=== PATIENT | female | born 1975 ===

== ENCOUNTER 2024-06-02 22:32 | Emergency (ER) | payer OTHER, SELFPAY ==
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
[2024-06-02 22:33] VITALS: BP 119/92; PULSE 99; RESP 16; TEMP 37; O2SAT 99
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
[2024-06-02 22:53] LABS: Bilirubin Negative (Negative); Blood Trace-intact (Negative); Clarity Clear (Clear); Glucose Negative (Negative); Ketones Negative (Negative); Leukocyte Esterase Negative (Negative); Nitrite Negative (Negative); Specific Gravity 1.015 (1.005-1.025); Urobilinogen 0.2 mg/dL (Up to 0.2)
[2024-06-02 22:56] LABS: Abs Immature Grans 0.02 10^3/uL (0.0-0.06); Absolute Basophil Count 0.04 10^3/uL (0.0-0.2); Absolute Eosinophil Count 0.11 10^3/uL (0.0-0.7); Absolute Lymphocyte Count 1.71 10^3/uL (1.2-3.4); Absolute Monocyte Count 0.42 10^3/uL (0.1-0.8); Absolute Neutrophil Count 7.44 10^3/uL (1.2-6.7); Basophils % 0.4 %; Eosinophils % 1.1 %; HCT 39.8 % (36.0-46.0); HGB 13.4 g/dL (11.2-15.7); Immature Grans % 0.2 %; Lymphocytes % 17.6 %; MCH 30.1 pg (27.0-33.0); MCHC 33.7 % (32.0-36.0); MCV 89 fL (80-95); MPV 10.1 fL (8.0-11.0); Monocytes % 4.3 %; Neutrophils % 76.4 %; Platelet Count 188 10^3/uL (130-400); RBC 4.45 10^6/uL (3.93-5.22); RDW 13.1 % (11.7-14.6); RDW-SD 42.6 fL; WBC 9.74 10^3/uL (4.4-10.8)
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
[2024-06-02 23:00] LABS: Bacteria Few HPF (Negative); C & S Indicated? No; Casts Negative LPF (Negative); Crystals Negative HPF (Negative); Epithelial Cells Rare HPF (Negative); Mucus Negative (Negative); RBC 0-2 HPF (0-2); WBC 0-2 HPF (0-5)
[2024-06-02 23:06] VITALS: O2SAT 99
[2024-06-02] MEDS: Normal Saline - Diluent 50 ML VIAL IJ (23:08)
[2024-06-02] MEDS: Omnipaque 350 MG/ML 100 ML BTL IJ (23:09)
[2024-06-02 23:11] LABS: ALT 25 U/L (14-59); AST 19 U/L (15-37); Albumin 4.1 g/dL (3.4-5.0); Alkaline Phosphatase 64 U/L (46-116); Amylase 67 U/L (25-115); BUN 8 mg/dL (7-18); Bilirubin, Total 0.59 mg/dL (0.2-1.0); CREATININE 0.7 mg/dL (0.55-1.02); Calcium 8.7 mg/dL (8.5-10.1); Chloride 106 mmol/L (98-107); Estimated GFR 107.95 (mL/min/1.73m2); Glucose 90 mg/dL (74-106); Lipase 36 U/L (16-77); Potassium 3.2 mmol/L (3.5-5.1); Sodium 141 mmol/L (136-145); Total Protein 7.8 g/dL (6.4-8.2)
[2024-06-02] MEDS: Acetaminophen 500 MG TAB 1000 MG PO (23:22)
[2024-06-02] MEDS: Ketorolac 15 MG/ML VIAL (23:22)
[2024-06-02 23:23] VITALS: O2SAT 98
[2024-06-02] MEDS: Potassium Chloride Liquid 20 MEQ PKT 40 MEQ PO (23:26)
[2024-06-02 23:30] VITALS: O2SAT 100
[2024-06-02 23:40] VITALS: O2SAT 100
[2024-06-02 23:50] VITALS: O2SAT 99
[2024-06-03] VITALS: O2SAT 99
[2024-06-03 00:10] VITALS: O2SAT 98
--- OUTSIDE RECORDS SUMMARY | 2024-06-03 00:36 | XMS_ITS | Encounter Summary ---
Author Organization [facility] Address [address] [place] [address] Care Team Providers Care Patient Service Coordinator Name Role Phone Reji Dooley MD Unavailable [phone] Reason for Visit * Reason Comments Pharyngitis SORE THROAT-ID SEEN Encounter Details Date Type Department Care Team ([facility] Contact Info) Description 05/08/2016 6:25 PM EDT - 05/08/2016 8:09 PM EDT Emergency [facility] - [facility] [address] [place] [address] Susu Mora-Inactive- Viral pharyngitis Discharge Disposition: Home Social History Tobacco Use Types Packs/Day Years Used Date Smoking Tobacco: Never Alcohol Use Standard Drinks/Week Comments No 0 (1 standard drink = 0.6 oz pur e alcohol) Sex and Gender Information Value Date Recorded Sex Assigned at Not on file Gender Identity Not on file Sexual Orientation Not on file documented as of this encounter Last Filed Vital Signs Vital Sign Reading Time Taken Comments Blood Pressure 108/70 05/08/2016 6:38 PM EDT Pulse 86 05/08/2016 6:38 PM EDT Temperature 36.8 ??C (98.3 ??F) 05/08/2016 6:38 PM ED T Respiratory Rate 16 05/08/2016 6:38 PM EDT Oxygen Saturation 98% 05/08/2016 6:38 PM EDT Inhaled Oxygen Concentration - - Weight - - Height - - Body Mass Index - - documented in this encounter Discharge Instructions * Discharge Instructions* Susu Mora - 05/08/2016 7:47 PM EDT You were seen in the ED for a sore throat. Your rapid strep test was negative. A second test has been sent (throat culture) to confirm - if the test is abnormal you will receive a phone call. [place] 2-3 days to obtain. You may take the following medication for your symptoms: -acetaminophen (Tylenol) 500-650mg every 6 hours and -ibuprofen (Motrin, Advil) 400mg every 6 hours See attached for general care information. See your PCP if not improved after 4- 7 days. * Attachments The following attachments cannot be sent through Care Everywhere. * VIRAL INFECTIONS, CMHY-OX-ACOF (DIVEHI) documented in this encounter ED Notes * Susu Mora - 05/08/2016 6:44 PM EDT I have reviewed the ED nursing notes and prior records. I have reviewed the patient's past medical history/problem list, allergies, social history and medication list. I saw this patient primarily. CC: sore throat HPI: This 40 year old female patient with sore throat x 1 days. Fever - none. No cough, nasal congestion, ear pain, n/v/d, abd pain, cp, sob, rash. 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 Past Medical History/Problem List: History reviewed. No pertinent past medical history. There is no problem list on file for this patient. Past Surgical History: History reviewed. No pertinent past surgical history. Medications: No current facility-administered medications on file prior to encounter. No current outpatient prescriptions on file prior to encounter. Social History: Smoking status: Never Smoker Smokeless tobacco: Not on file Alcohol use No Allergies: Review of Patient's Allergies indicates: No Known Allergies Physical Exam: BP 108/70 Pulse 86 Temp 98.3 ??F Resp 16 LMP 04/23/2016 SpO2 98% GENERAL: Well-appearing, no distress. SKIN: Warm & dry, no rash. HEAD: Atraumatic. Normocephalic. ENT: Mucous membranes moist. Oropharynx B tonsillar erythema without enlargement or exudates, symmetric tonsils. TMs nl. Nasal mucosa nl. Uvula midline. EYES: Anicteric, nl conjunctiva. NECK: FROM, no cervical adenopathy. LUNGS: Clear to auscultation bilaterally, regular rate and effort. CV: RRR. No murmurs, rubs, or gallops. MUSCULOSKELETAL: No clubbing or cyanosis. NEUROLOGIC: Alert. Normal speech. Normal gait. PSYCHIATRIC: Normal affect ED Course and Medical Decision-making: The patient is 40 year old female with sore throat. Exam with OP erythema without tonsillar enlargement/exudate. Uvula midline. No asymmetry. O2 saturation interpretation: nl. Rapid strep negative, culture sent. Dexamethasone and ibuprofen in ED. D/c home with tylenol/ibuprofen. Doctor finder line for new PCP. No indication for emergent labs/imaging at this time. F/u in 7 days if not improving. The diagnosis, treatment, and follow-up were all discussed with the patient. All questions were answered. Reasons to return to the ED were reviewed in detail. The patient agrees with this plan and disposition. Disposition: Discharged to home Condition on Disposition: Improved and Stable Diagnosis/Diagnoses: Viral pharyngitis Susu Mora MD documented in this encounter Miscellaneous Notes * Narrator Note - Indiana Farris - 05/08/2016 7:50 PM EDT Patient Disposition Patient education for diagnosis, medications, activity, diet and follow-up. Patient left ED 7:50 PM. Patient rep received written instructions. Regrind Mill Operator to provide instructions: No Patient belongings with patient: YES Have all existing LDAs been addressed? N/A Have all IV infusions been stopped? N/A Discharged to: Discharged to home - voices understanding of all instructions given. * ED Triage Note - Jeremiah Jo - 05/08/2016 6:39 PM EDT I have a sore throat, started yesterday. Pt presents ambulatory,NAD.Pt has enlarged tonsils with scant amount of exudate.Her lung sounds areclear.Pt has no other somatic complaints. documented in this encounter Plan of Treatment Not on file documented as of this encounter Procedures Procedure Name Priority Date/Time Associated Diagnosis Comments THROAT CULTURE BETA STREP Routine 05/08/2016 6:46 PM EDT RAPID STREP (POINT OF CARE) Routine 05/08/2016 6:46 PM EDT documented in this encounter Results * Throat Culture Beta Strep (05/08/2016 6:46 PM EDT) THROAT CUL, B STREP SCREEN NO GROUP A STREP [facility] SPECIMEN FROM THROAT / Unknown 05/08/2016 6:46 PM EDT 05/08/2016 6:48 PM EDT Narrative [facility] - 05/10/2016 1:07 PM EDT Source Details->throat Marc Mora [facility] [address] [place] [address] * Rapid Strep (Point of Care) (05/08/2016 6:46 PM EDT) STREP SCREEN Negative ONBOARD CONTROL PRESENT? Yes SPECIMEN FROM THROAT / Unknown 05/08/2016 6:46 PM EDT Marc Mora POINT OF CARE TEST ORDERABLES documented in this encounter Visit Diagnoses Diagnosis Viral pharyngitis Acute pharyngitis documented in this encounter Administered Medications Inactive Administered Medications - up to 3 most recent administrations Medication Order MAR Action Action Date Dose Rate Site dexamethasone (DECADRON) tablet 8 mg 8 mg, Oral, ONCE, On Wed05/08/16 at 1900, For 1 dose Given 05/08/2016 7:00 PM EDT 8 mg ibuprofen (ADVIL,MOTRIN) tablet 400 mg 400 mg, Oral, ONCE, On Wed05/08/16 at 1900, For 1 dose Given 05/08/2016 7:00 PM EDT 400 mg documented in this encounter Active and Recently Administered Medications Times are shown in EDT. Scheduled Medication Order 05/06/2016 05/07/2016 05/08/2016 dexamethasone (DECADRON) tablet 8 mg (COMPLETED) 8 mg, Oral, ONCE, On Wed05/08/16 at 1900, For 1 dose 1900 (Given - Provid er: Jeremiah Jo) ibuprofen (ADVIL,MOTRIN) tablet 400 mg (COMPLETED) 400 mg, Oral, ONCE, On Wed05/08/16 at 1900, For 1 dose 1900 (Given - Provid er: Jeremiah Jo) documented in this encounter Care Teams Patient Service Coordinator Relationship Specialty Start Date End Date Reji Dooley MD [address] [facility] [address] [place] [address] PCP - Insurance PCP 10/09/15 08/14/18 documented as of this encounter
--- OUTSIDE RECORDS SUMMARY | 2024-06-03 00:36 | XMS_ITS | Encounter Summary ---
Author Organization [facility] iance Address [address] [place] [address] Care Team Providers Care Vp & General Counsel Name Role Phone Reji Dooley MD Unavailable [phone] Reason for Visit * Reason Comments Eye Problem EYE INFECTION Encounter Details Date Type Department Care Team ([facility] st Contact Info) Description 12/05/2015 2:29 PM EST - 12/05/2015 4:08 PM EST Emergency [facility] [address] [place] [address] Venkat Pozo MD Conjunctivitis of both eyes, unspecified conjunctivitis (Primary Dx) Discharge Disposition: Home Social History Tobacco Use [...] Sign Reading Time Taken Comments Blood Pressure 104/61 12/05/2015 2:39 PM EST Pulse 59 12/05/2015 2:39 PM EST Temperature 37.1 ??C (98.7 ??F) 12/05/2015 2:39 PM ES T Respiratory Rate 16 12/05/2015 2:39 PM EST Oxygen Saturation 97% 12/05/2015 2:39 PM EST Inhaled Oxygen Concentration - - Weight - - Height - - Body Mass Index - - documented in this encounter Discharge Instructions * Discharge Instructions* Olinda Singh PA - 12/05/2015 3:58 PM EST DIAGNOSIS & TREATMENT: You were seen in a [facility] Emergency Department for conjunctivitis. You were treated with erythromycin ointment. FURTHER CARE: 1. Use erythromycin ointment as directed. 2. Wash your hands repeatedly and avoid touching your eyes otherwise you can spread it. 3. Throw out any contaminated eye makeup otherwise you risk re-infecting yourself. NEW MEDICATIONS: Erythromycin ointment: Apply 1/2 inch to lower lid 4 times a day for 5-7 days. This is an antibiotic which is only effective against bacterial infections, not viral. Please take this medication as directed and finish out the entire course of the medication. Failure to do this can cause resistance and not only allow your infection to return but also make it harder to treat the next time. WHEN SHOULD YOU BE SEEN NEXT? Please call your human resources representative and be seen with in the next 5 days for re- evaluation if your symptoms are not improving. WHEN SHOULD YOU RETURN TO THE ED? Please return to the emergency room if you develop fever, increased pain, worsening redness, worsening or loss of vision, your symptoms worsen, you get new symptoms or you are unable to schedule follow up care. documented in this encounter Medications at Time of Discharge Medication Sig Dispensed Refills Start Date End Date erythromycin (ROMYCIN) ophthalmic ointment Place 0.5 Inches into both eyes every 6 (six) hours. 3.5 g 0 12/05/2015 12/10/2015 documented as of this encounter ED Notes * Olinda Singh PA - 12/05/2015 4:00 PM EST ED nursing record was reviewed. Prior records as available electronically through the [employer] record were reviewed. Patient was seen along with Dr. Pozo and management was discussed with them. HPI: This 39 year old female patient presents to the Emergency Department with chief complaint of bilateral eye itchiness, redness, discharge. She said that yesterday her left eye felt itchy however she did not think anything of it. She woke up and both eyes were crusted shut. They have been itchy and uncomfortable all day. Does not wear contact lenses. She denies any eye pain. Denies photophobia. Denies any foreign body sensation. Denies any trauma to the eye. Denies any changes in vision or diplopia. Denies any fevers, chills, nasal congestion, earache, sore throat, cough, chest pain, shortness of breath, or abdominal pain. ROS: Pertinent positives were reviewed as per the HPI above. All other systems were reviewed and are negative. Past Medical History/Problem list: History reviewed. No pertinent past medical history. There is no problem list on file for this patient. Past Surgical History: History reviewed. No pertinent past surgical history. Medications: No current facility-administered medications on file prior to encounter. No current outpatient prescriptions on file prior to encounter. Social History: Social History Marital Status: Spouse Name: N/A Years of Education: N/A Number of Children: N/A Occupational History None on file Social History Main Topics Smoking status: Never Smoker Smokeless tobacco: Not on file Alcohol Use: No Drug Use: No Sexual Activity: Not on file Not on file Other Topics Concern None on file Social History Narrative Allergies: Review of Patient's Allergies indicates: No Known Allergies Physical Exam: BP 104/61 mmHg Pulse 59 Temp(Src) 98.7 ??F Resp 16 SpO2 97% LMP 11/28/2015 (Exact Date) GENERAL: Well appearing, No acute distress, non-toxic. SKIN: Warm & Dry, no erythema or rash. HEAD: NCAT. Sclerae are anicteric and aninjected, oropharynx is clear with moist mucous membranes. EYES: Both eyes conjunctiva are injected and erythematous. She has small amount of discharge in theleft medial canthus. Pupils are equal and reactive to light. Extraocular movement intact and pain-free. Fluorescein exam was performed and revealed no evidence of corneal abrasion, ulcer or herpetic lesions. No evidence of foreign body. NECK: Supple. No ODALYS. No stridor. LUNGS: Clear to auscultation bilaterally. No wheezes, rales, rhonchi. HEART: RRR. No murmurs, rubs, or gallops. NEUROLOGIC: Alert and oriented x4; moves all extremities well; speaking in clear fluent sentences. PSYCHIATRIC: Appropriate for age, time of day, and situation ED Course and Medical Decision-making: This 39 year old female patient was seen and evaluated for eye complaint. On exam she is well-appearing, nontoxic in no acute distress. She is afebrile with stable vital signs. Both eyes conjunctiva are injected and erythematous. She has small amount of discharge in the left medial canthus. Pupils are equal and reactive to light. Extraocular movement intact and pain-free. Fluorescein exam was performed and revealed no evidence of corneal abrasion, ulcer or herpetic lesions. No evidence of foreign body. With the patient's description of her symptoms as well as findings on physical exam, most likely diagnosis is acute bilateral conjunctivitis. She was given treatment with erythromycin here in the emergency department as well as given a prescription to continue for the next 5-7 days. The contact information for the [facility] to follow-up if symptoms did not resolve. Patient was discharged home. Reasons to return to the emergency department were discussed in detail. Condition: Stable Disposition: Home Diagnosis/Diagnoses: Conjunctivitis of both eyes, unspecified conjunctivitis (primary encounter diagnosis) Olinda Singh PA-C This Emergency Department patient encounter note was created using voice- recognition software and in real time during the ED visit. Please excuse any typographical errors that have not been edited out. Associated attestation - Venkat Pozo MD - 12/05/2015 10:02 PM EST This patient was evaluated in the ED for bilateral eye itchiness/crusting, although initial historyand physical exam information was obtained by the HERNAN Singh, who also made a record of this visit. I independently examined and evaluated this patient and made all diagnostic, treatment and disposition decisions. Physical examination Vital signs:BP 104/61 mmHg Pulse 59 Temp(Src) 98.7 ??F Resp 16 SpO2 97% LMP 11/28/2015 (Exact Date) Constitutional: No acute distress, non-toxic appearance Eyes: PERRL, injected conjunctiva bilaterally, no evidence of abrasion on fluoroscein staining HENT: Atraumatic, external ears normal, nose normal, oropharynx moist. Musculoskeletal: No edema, no tenderness, no deformities. Integument: Well hydrated, no rash Neurologic: Alert & oriented. Cranial nerves, motor, sensory grossly intact. Psychiatric: Speech and behavior appropriate. Labs Reviewed SCREENING TEST VISUAL ACUITY QUANTITATIVE BILAT Emergency Department course and medical decision-making: Patient is a 39-year-old female presenting to the emergency department with concern for bilateral eye itchiness/discharge. Evaluation is suggestive of conjunctivitis, likely bacterial vs. viral in etiology. Plan to treat patient with course of erythromycin ophthalmic ointment, and have patient follow up with PCP. Patient stable for discharge home. Impression: Conjunctivitis of both eyes, unspecified conjunctivitis (primary encounter diagnosis) Electronically signed by: Venkat Pozo MD, 12/05/2015 10:02 PM This Emergency Department patient encounter note was created using voice- recognition software and in real time during the ED visit. Please excuse any typographical errors that have not been edited out. * Venkat Pozo MD - 12/05/2015 3:56 PM EST Visual acuity (stereopsis) 20/30 (-1) documented in this encounter Miscellaneous Notes * Narrator Note - Arlene Skinner - 12/05/2015 4:05 PM EST Discharged to home after review of instructions and plans to follow up or return to the ED as needed. * ED Triage Note - Arlene Skinner - 12/05/2015 2:40 PM EST Presents reporting itchy, burning sensation with crustiness this am in both eyes. Its uncomfortable, she denies any dust or other types of work where it could get in her eyes. She does have small children at home. documented in this encounter Plan of Treatment Not on file documented as of this encounter Procedures Procedure Name Priority Date/Time Associated Diagnosis Comments SCREENING TEST VISUAL ACUITY QUANTITATIVE BILAT Routine 12/05/2015 3:31 PM EST documented in this encounter Results * Visual Acuity Screen (Point of Care) (12/05/2015 3:31 PM EST) VISUAL ACUITY LEFT EYE 20/30 VISUAL ACUITY RIGHT EYE 20/30 Stereopsis Visual Test 12/05/2015 3:31 PM EST Olinda Gudino PA-Geoffrey POINT OF CARE TEST O RDERABLES documented in this encounter Visit Diagnoses Diagnosis Conjunctivitis of both eyes, unspecified conjunctivitis- Primary documented in this encounter Administered Medications Inactive Administered Medications - up to 3 most recent administrations Medication Order MAR Action Action Date Dose Rate Site erythromycin (ROMYCIN) ophthalmic ointment 0.5 Inch 0.5 Inch, Both Eyes, ONCE, Starting on Monica 12/05/15 at 1556, For 1 dose Given 12/05/2015 4:05 PM EST 0.5 Inches fluorescein ophthalmic strip 1 strip 1 strip, Both Eyes, ONCE, On Monica 12/05/15 at 1529, For 1 dose, To bedside for provider. Given 12/05/2015 3:31 PM EST 1 strip tetracaine (PONTOCAINE) 0.5 % ophthalmic solution 2 drop 2 drop, Both Eyes, ONCE, On Monica 12/05/15 at 1529, For 1 dose, To bedside for provider Given 12/05/2015 3:31 PM EST 2 drops documented in this encounter Active and Recently Administered Medications Times are shown in EST. Scheduled Medication Order 12/03/2015 12/04/2015 12/05/2015 erythromycin (ROMYCIN) ophthalmic ointment 0.5 Inch (COMPLETED) 0.5 Inch, Both Eyes, ONCE, Starting on Monica 12/05/15 at 1556, For 1 dose 1605 (Given - Provid er: Arlene Skinner) fluorescein ophthalmic strip 1 strip (COMPLETED) 1 strip, Both Eyes, ONCE, On Monica 16 at 1529, For 1 dose, To bedside for provider. 1531 (Given - Provid er: Arlene Skinner - Comment: given to provider for use with this patient) tetracaine (PONTOCAINE) 0.5 % ophthalmic solution 2 drop (COMPLETED) 2 drop, Both Eyes, ONCE, On Monica 12/05/15 at 1529, For 1 dose, To bedside for provider 1531 (Given - Provid er: Arlene Skinner - Comment: given to provider for use with this patient) documented in this encounter Care Teams Vp & General Counsel Relationship Specialty Start Date End Date Reji Dooley MD [address] [facility] [address] [place] [id number] PCP - Insurance PCP 10/09/15 08/14/18 documented as of this encounter
--- OUTSIDE RECORDS SUMMARY | 2024-06-03 00:36 | XMS_ITS | Encounter Summary ---
Author Organization [facility] Address [address] [place] [address] Care Team Providers Care Insurance Claim Auditor Name Role Phone Reji Dooley MD Unavailable Reji Dooley MD Primary Care Provider [phone] Add, Provider Not In System Unavailable Unav ailable Reason for Visit * Reason Comments Ankle Pain ANKLE PAIN Encounter Details Date Type Department Care Team (Late st Contact Info) Description 08/14/2018 11:56 PM EDT - 08/15/2018 3:07 AM EDT Emergency [facility] [id number] [place] [address] Bee Robledo MD [facility] [place] [address] Sprain of deltoid ligament of left ankle (Primary Dx); Sprain of right wrist; Pain in left ankle; Overexertion from prolonged static or awkward postures, initial encounter; Activity involving running; Other specified places as the place of occurrence of the external cause Discharge Disposition: Home Social History Tobacco Use [...] Sign Reading Time Taken Comments Blood Pressure 111/71 08/15/2018 12:39 AM EDT Pulse 87 08/15/2018 12:39 AM EDT Temperature 37 ??C (98.6 ??F) 08/15/2018 12:39 AM EDT Respiratory Rate 16 08/15/2018 12:39 AM EDT Oxygen Saturation 98% 08/15/2018 12:39 AM EDT Inhaled Oxygen Concentration - - Weight - - Height - - Body Mass Index - - documented in this encounter Discharge Instructions * Discharge Instructions* Bee Robledo MD - 08/15/2018 2:17 AM EDT DIAGNOSIS & TREATMENT: [facility] for left ankle and right wrist pain. TEST RESULTS: X-ray of your right wrist and left ankle show no fractures on preliminary read. This will be reviewed by the radiologist in the morning. If there is a significant discrepancy between the preliminary report and the radiologist's final interpretation, you will be notified by telephone. FURTHER CARE: Rest, Ice and elevate the limbs. Use the crutches as needed until you are able to bear weight on your foot without pain. Gradually return to normal activity. Keep the Aircast on your ankle for 2 weeks. NEW MEDICATIONS: Please use over the counter Tylenol (acetaminophen) and Motrin (ibuprofen) for pain control. Take Tylenol (acetaminophen) 650 MG ( 2 regular strength tablets) every 6 hours. Take Motrin/Advil (ibuprofen) 600 MG (3 tablets) every 6 hours, and take with food. You can them together every 6 hours, or alternate between Tylenol and Motrin taking one every threehours. Wait 6 hours between the SAME kind of medication. ??? Please make sure you monitor your Tylenol use. Tylenol is the same as acetaminophen. For adults, any amount over 4 grams (4,000 mg) in any 24 hour period can cause liver damage, possibly irreversible. ??? Please make sure to check all the medications you are taking including over- the counter (OTC) medications. Many multi-symptom medications have acetaminophen in them so please check carefully. ??? For an adult, do not take more than 3200 mg of Ibuprofen in any 24 hour period. Please contact your doctor or pharmacist for any additional questions. WHEN SHOULD YOU BE SEEN NEXT? Please call your doctor and be seen with in the next 10 days for re-evaluation if your symptoms arenot improving. If you do not have a primary care doctor or would like to [facility], please call [phone] to set one up an appointment. WHEN SHOULD YOU RETURN TO THE ED? Please return to the emergency room if you develop numbness, tingling, your limb becomes cool to the touch or turns blue, your symptoms worsen, you get new symptoms or you are unable to schedule follow up care. documented in this encounter ED Notes * Bee Robledo MD - 08/15/2018 8:05 AM EDT [facility] Emergency Medicine Attending Note History of Present Illness: Minal Cabral is a 42 year old female patient with no significant past medical history who presents with left ankle pain. Patient states she was running in the grass this afternoon, when she she has noted increased swelling, pain, and pain with ambulation. She has not taken any medications. No headache, neck pain, back pain, chest pain, shortness of breath, abdominal pain. She does have some pain in her right wrist from the fall. The patient was seen primarily by me. ED nursing record was reviewed. Prior records as available electronically through the [employer] record were reviewed. Patient's mode of arrival was by Relative Arrival time: 08/14/2018 11:56 PM Chief complaint: Ankle Pain (ANKLE PAIN) Review of Systems: As per HPI. Past Medical Hx: History reviewed. No pertinent past medical history. There is no problem list on file for this patient. Meds: No current facility-administered medications for this encounter. No current outpatient medications on file. Past Surgical Hx: History reviewed. No pertinent surgical history. Allergies: Review of Patient's Allergies indicates: No Known Allergies Social Hx: Social History Tobacco Use Smoking status: Never Smoker Alcohol use: No Immunizations: There is no immunization history on file for this patient. Physical Examination: ED Triage Vitals [08/15/18 0039] ED Triage Vitals Brief Group Temp 98.6 ??F Pulse 87 Resp 16 BP 111/71 SpO2 98 % Pain Score 8 GENERAL: no acute distress, non-toxic SKIN: Warm & Dry, no rash HEAD: NCAT. Sclerae are anicteric and aninjected NECK: Supple. No stridor. No midline C-spine tenderness LUNGS: Clear to auscultation bilaterally. No wheezes, rales, rhonchi. No chest wall tenderness HEART: RRR. No murmurs, rubs, or gallops. ABDOMEN: Soft, NTND. No involuntary guarding or rebound. EXTREMITIES: No obvious deformities. Warm and well perfused. No edema. Right wrist: Tenderness overthe distal lateral radius, no other focal bony tenderness, no snuffbox tenderness. Left ankle: Tenderness at the lateral malleolus NEUROLOGIC: Alert and oriented x3; moves all extremities well; speaking in clear fluent sentences. Motor and sensation intact bilateral lower extremities PSYCHIATRIC: Appropriate for age, time of day, and situation Medications Given in the ED: Medications - No data to display Radiology and ECG: XR Wrist Right minimum 3 Vw Final Result XR Ankle Left minimum 3 Vw Final Result Electrocardiogram: N/A Lab Results: Labs Reviewed POC URINALYSIS URINE TEST (POINT OF CARE) Results for orders placed or performed during the hospital encounter of 08/14/18 (from the past 24 hour(s)) POC Urinalysis Collection Time: 08/15/18 1:15 AM Result Value COLOR YELLOW CLARITY CLEAR GLUCOSE,URINE NEGATIVE BILIRUBIN, URINE NEGATIVE KETONE, URINE NEGATIVE SPECIFIC GRAVITY, URINE <=1.005 UROBILINOGEN URINE 0.2 OCCULT BLOOD, URINE NEGATIVE PH URINE 6.0 PROTEIN, URINE NEGATIVE NITRITE, URINE NEGATIVE LEUKOCYTE ESTERASE NEGATIVE Urine (Point of Care) Collection Time: 08/15/18 1:20 AM Result Value HCG QUALITATIVE URINE Negative ONBOARD CONTROL PRESENT? Yes Vital Signs: Patient Vitals for the past 720 hrs: Temp Pulse Resp BP SpO2 08/15/18 0039 98.6 ??F 87 16 111/71 98 % ED Course and Medical Decision-making: This 42 year old female patient presents with injuries after a fall. Patient with right wrist and left ankle pain and tenderness. X-rays were obtained which show no fractures on my preliminary read. No snuffbox tenderness to suggest scaphoid fracture of the right wrist. Patient counseled on symptomatic management. She was provided with an Aircast, and will be discharged to follow- up with her primary care provider. Reasons to return to the ED were reviewed in detail. All questions were answered. The patient agrees with this plan and disposition. Condition on Discharge: Improved Diagnosis/Diagnoses: Sprain of deltoid ligament of left ankle, initial encounter Right wrist sprain, initial encounter Medications administered at this visit: No orders of the defined types were placed in this encounter. New prescriptions from this visit: There are no discharge medications for this patient. Bee Robledo MD, MPH 08/16/2018 Dept[facility] This Emergency Department patient encounter note was created using voice- recognition software and in real time during the ED visit. Please excuse any typographical errors that have not yet been reviewed and corrected. documented in this encounter Miscellaneous Notes * Narrator Note - Gordo Rousseau RN - 08/15/2018 2:41 AM EDT Patient Disposition Patient education for diagnosis, medications, activity, diet and follow-up. Patient left ED 2:41 AM. Patient rep received written instructions. Suction Worker to provide instructions: No Patient belongings with patient: YES Have all existing LDAs been addressed? N/A Have all IV infusions been stopped? N/A Discharged to: Discharged to home Home with crutch teaching. Pt verbalizes understanding. * ED Triage Note - Gordo Rousseau RN - 08/15/2018 12:39 AM EDT Pt presents to ED from home. Pt s/p L ankle injury when running in grass this afternoon. Pt reportsincreased swelling, pain, and inability to bear weight to LLE. No OTC medication BERRY GROWER. Ice/elevated in triage. documented in this encounter Plan of Treatment Not on file documented as of this encounter Procedures Procedure Name Priority Date/Time Associated Diagnosis Comments XR WRIST RIGHT MINIMUM 3 VIEWS Stat 08/15/2018 1:50 AM EDT XR ANKLE LEFT MINIMUM 3 VIEWS Stat 08/15/2018 1:44 AM EDT URINE TEST (POINT OF CARE) Routine 08/15/2018 1:20 AM EDT POC URINALYSIS Routine 08/15/2018 1:15 AM EDT documented in this encounter Results * XR Wrist Right minimum 3 Vw (08/15/2018 1:50 AM EDT) RAD REPORT-[id number] [facility], ??[place] [address] ?? Department of Diagnostic Radiology PATIENT: MINAL CABRAL ?? : 1975 ??AGE: 42 ?? SEX: F ?LOCATION: [facility] ?? UNIT#: [id number] ??STATUS: DEP ER ?? ORD PHY: BEE ROBLEDO MD ?? Exam Date: 08/15/18 ?Exam Status: Signed ?? Exam: ??WRIST, RIGHT MIN 3 VIEWS ?? Reason for Exam: ??pain sp FOOSH ?? Exam: Right wrist, 3 views ?? Indication: Reason: ??pain sp fell on outstretched hand ?? Comparison: none ?? Findings: ?? Bones: There is no fracture or dislocation. The bony alignment is ?? normal. ?? Joints /Joint Surfaces: The joint spaces are maintained. ?? Soft Tissues: Unremarkable. ? Impression: No acute bony changes. ?? Dictated By: ?LILIA RAHMAN MD ?? Reviewed and Electronically Signed By: ?? LILIA RAHMAN MD ?? Technologist: [email or web address] Signed Date/Time: 08/15/18 0734 Transcribed Date/Time: 08/15/18 0733 by [email or web address] Printed Date/Time: ?? Report #: [id number] Addendum Transcribed Date/Time: / Addendum Signed Date/Time ?? CC: ? DIAGNOSTIC RADIOLOGY Anatomical Region Laterality Modality Upper Extremities Other 08/15/2018 1:50 AM EDT Bee Robledo MD RAD XR ORDERABLES * XR Ankle Left minimum 3 Vw (08/15/2018 1:44 AM EDT) RAD RE[facility] [address], ??[place] [address] ?? Department of Diagnostic Radiology PATIENT: ENGIDAWORK,MESSAY ?? : 1975 ??AGE: 42 ?? SEX: F ?LOCATION: [facility] ?? UNIT#: [id number] ??STATUS: DEP ER ?? ORD PHY: BEE ROBLEDO MD ?? Exam Date: 08/15/18 ?Exam Status: Signed ?? Exam: ??ANKLE, LEFT MIN 3 VIEWS ?? Reason for Exam: ??swelling ?? Exam: Left Ankle, 3 views ?? Indication: Reason: ??swelling ?? Comparison: None ?? Findings: ?? Bones: There is no fracture or dislocation. The bony alignment is ?? normal. ?? Joints /Joint Surfaces: The ankle mortise is preserved. There is no ?? visible joint effusion. ?? Soft Tissues: The soft tissues appear normal. ? Impression: No acute bony changes. ?? Dictated By: ?LILIA RAHMAN MD ?? Reviewed and Electronically Signed By: ?? LILIA RAHMAN MD ?? Technologist: [email or web address] Signed Date/Time: 08/15/18731 Transcribed Date/Time: 08/15/18731 by [email or web address] Printed Date/Time: ?? Report #: [id number] Addendum Transcribed Date/Time: / Addendum Signed Date/Time ?? CC: ? DIAGNOSTIC RADIOLOGY Anatomical Region Laterality Modality Lower Extremities Other 08/15/2018 1:44 AM EDT Bee Robledo MD RAD XR ORDERABLES * Urine (Point of Care) (08/15/2018 1:20 AM EDT) HCG QUALITATIVE URINE Negative Comment: This urine HCG qualitative test detects intact hCG only and is indicated for the early detection of . As a progresses, the hCG molecule can fragment into different forms and this test cannot detect the fragments/ degradation products. Quantitative assays used to detect hCG may detect hCG degradation products and, therefore, may disagree with the results of this rapid qualitative test. For these reasons, it is not recommended that this test be used beyond the 1st trimester. ONBOARD CONTROL PRESENT? Yes Urine specimen (specimen) VOIDED URINE SPECIMEN / Unknown 08/15/2018 1:20 AM EDT Bee Robledo MD POINT OF CARE TEST O RDERABLES * POC Urinalysis (08/15/2018 1:15 AM EDT) COLOR YELLOW YELLOW POINT OF CARE TESTING CLARITY CLEAR CLEAR POINT OF CARE TESTING GLUCOSE,URINE NEGATIVE NEGATIVE POINT OF CARE TESTING BILIRUBIN, URINE NEGATIVE NEGATIVE POI NT OF CARE TESTING KETONE, URINE NEGATIVE NEGATIVE POINT OF CARE TESTING SPECIFIC GRAVITY, URINE <=1.005 1.003 - 1.030 POINT OF CARE TESTING UROBILINOGEN URINE 0.2 0.2 - 1.0 POINT OF CARE TESTING OCCULT BLOOD, URINE NEGATIVE NEGATIVE POINT OF CARE TESTING PH URINE 6.0 5.0 - 8.0 POINT OF CARE TESTING PROTEIN, URINE NEGATIVE NEGATIVE POINT OF CARE TESTING NITRITE, URINE NEGATIVE NEGATIVE POINT OF CARE TESTING LEUKOCYTE ESTERASE NEGATIVE NEGATIVE POINT OF CARE TESTING 08/15/2018 1:15 AM EDT 08/15/2018 1:20 AM EDT Ed Physician LABORATORY POINT OF CARE TESTING at Patient Bedside/Location documented in this encounter Visit Diagnoses Diagnosis Sprain of deltoid ligament of left ankle- Primary Sprain of deltoid (ligament), ankle Sprain of right wrist Sprain of wrist, unspecified site Pain in left ankle Pain in joint, ankle and foot Overexertion from prolonged static or awkward postures, initial encounter Activity involving running Activities involving running Other specified places as the place of occurrence of the external cause documented in this encounter Care Teams Insurance Claim Auditor Relationship Specialty Start Date End Date Reji Dooley MD [address] [facility] [address] [place] [address] PCP - Insurance PCP 10/09/15 08/14/18 Reji Dooley MD [address] [facility] [address] [place] [address] PCP - General 08/15/18 Add, Provider Not In System [address] [facility] [address] [place] [address] PCP - Insurance PCP 08/15/18 11/28/21 documented as of this encounter
--- OUTSIDE RECORDS SUMMARY | 2024-06-03 00:36 | XMS_ITS | Encounter Summary ---
Author Organization [facility] iance Address [address] [place] [address] Care Team Providers Care Road Design Draftsperson Name Role Phone Reji Dooley MD Primary Care Provider [phone] Refugio Seymour DO Unavailable Reason for Visit * Reason Comments Arm Pain Encounter Details Date Type Department Care Team ([facility] st Contact Info) Description 11/29/2021 9:40 AM EST - 11/29/2021 10:25 AM EST Emergency [facility] [address] [place] [address] Brittnee Doherty PA-C [address] [facility] [place] [address] Musculoskeletal pain; De Quervain's disease (radial styloid tenosynovitis) Discharge Disposition: Home Social History Tobacco Use [...] Sign Reading Time Taken Comments Blood Pressure 129/79 11/29/2021 10:19 AM EST Pulse 98 11/29/2021 10:13 AM EST Temperature 36.7 ??C (98 ??F) 11/29/2021 9:53 AM EST Respiratory Rate 17 11/29/2021 9:53 AM EST Oxygen Saturation 98% 11/29/2021 9:53 AM EST Inhaled Oxygen Concentration - - Weight 59 kg (130 lb) 11/29/2021 9:53 AM EST Height - - Body Mass Index - - documented in this encounter Discharge Instructions * Discharge Instructions* Brittnee Doherty PA-C - 11/29/2021 10:09 AM EST You were seen in the emergency department today for bilateral wrist pain paresthesias. You have something called de Quervain's tenosynovitis. This is common in women in the period. Wear the thumb spica splints to help immobilize that area, move them several times a day and range her wrist to avoid stiffness. You can also ice your wrists as well. It is important that you follow-up for your visit. Return to the emergency department if your symptoms worsen. * Attachments The following attachments cannot be sent through Care Everywhere. * De Quervain's Tenosynovitis (Polish) documented in this encounter ED Notes * Brittnee Doherty PA-C - 11/29/2021 10:18 AM EST EMERGENCY DEPARTMENT PHYSICIAN ANTIQUE COLLECTOR NOTE The ED nursing record was reviewed. The prior medical records as available electronically through [employer] were reviewed. - This patient has been seen by me, a certified Physician Radiologist, in accordance to department approved guidelines that allow [facility] Physician Assistants to evaluate a certain subset of lower acuity patients without Attending Physician evaluation. CHIEF COMPLAINT Patient presents with: Arm Pain HPI Messay Engidawork is a 45 year old female presenting today with bilateral wrist pain for several weeks. Patient states that the pain is on the radial side of both of her wrists and occasionally radiates up her forearm. She states that sometimes it is associated with paresthesias and the pain has made her have some weakness in her thumbs as well. She states that she is approximately 4 weeks, normal vaginal delivery, no spinal anesthesia. She has been recovering without any complications other than this pain. No recent trauma. Denies fever, chills, chest pain, shortness of breath, headache, dizziness, vomiting, numbness. REVIEW OF SYSTEMS The pertinent positives are reviewed in the HPI above. All other systems were reviewed and are negative. PAST MEDICAL HISTORY No past medical history on file. PROBLEM LIST There is no problem list on file for this patient. SURGICAL HISTORY No past surgical history on file. CURRENT MEDICATIONS No current facility-administered medications for this encounter. No current outpatient medications on file. ALLERGIES Review of Patient's Allergies indicates: No Known Allergies FAMILY HISTORY No family history on file. SOCIAL HISTORY Social History Socioeconomic History ??? Marital status: Spouse name: Not on file ??? Number of children: Not on file ??? Years of education: Not on file ??? Highest education level: Not on file Occupational History ??? Not on file Tobacco Use ??? Smoking status: Never Smoker Substance and Sexual Activity ??? Alcohol use: No ??? Drug use: No ??? Sexual activity: Not on file Other Topics Concern ??? Not on file Social History Narrative ??? Not on file Social Determinants of Health Financial Resource Strain: Difficulty of Paying Living Expenses: Not on file Food Insecurity: Worried About Running Out of Food in the Last Year: Not on file Ran Out of Food in the Last Year: Not on file Transportation Needs: Lack of Transportation (Medical): Not on file Lack of Transportation (Non-Medical): Not on file Physical Activity: Days of Exercise per Week: Not on file Minutes of Exercise per Session: Not on file Stress: Feeling of Stress : Not on file Social Connections: Frequency of Communication with Friends and Family: Not on file Frequency of Social Gatherings with Friends and Family: Not on file Attends Scientologist Services: Not on file Active Member of Clubs or Organizations: Not on file Attends Club or Organization Meetings: Not on file Marital Status: Not on file Intimate Partner Violence: Fear of Current or Ex-Partner: Not on file Emotionally Abused: Not on file Physically Abused: Not on file Sexually Abused: Not on file PHYSICAL EXAM Vital Signs: BP 139/80 Pulse 98 Temp 98 ??F Resp 17 Wt 59 kg (130 lb) LMP 12/12/2020 SpO2 98% Constitutional: Well-developed, Well-nourished, Non-toxic appearance. Speaking full sentences. HEENT: NCAT, sclera anicteric. Conjunctiva without injection. Neck: Normal range of motion, non-tender, Supple with no meningismus; no stridor. Skin: Warm and dry. No rash noted on exposed skin. Skin color and turgor normal. Cardio.: Radial pulses 2+ B/L Pulmonary: No tachypnea, Non-labored w/o retractions or accessory muscle use, or tripoding Musculoskeletal: Moving all 4 extremities, No major deformities noted. Ambulatory with steady gait. Bilateral TTP over radial styloid with positive Anthony test bilaterally. Negative Tinel's and Phalen's sign bilaterally. No focal joint erythema or warmth. Full active range of motion in all digits, wrists, and elbows. Full sensation to light touch in bilateral upper extremities. No overlying abrasions or ecchymosis. Compartments soft. Neurovascularly intact. Neurological: CNII-XII grossly intact, AOx3, No focal deficits noted. Psychiatric: Appropriate for age and situation. ED COURSE & MEDICAL DECISION MAKING I reviewed the patient's past medical history/problem list, past surgical history, medication list,social history and allergies. ED Decision Making & Course: Pt is a 45 year old female presenting today with bilateral wrist pain for several weeks. History and exam as above. Exam reassuring as her bilateral upper extremitiesare neurovascularly intact, vital signs are stable, and she is overall well-appearing. On arrival patient is in no acute distress. She is afebrile, not tachycardic, and there is no overlying edema that would be concerning for septic joint. She does endorse bilateral radial wrist pain that extends down her thumbs and occasionally up her forearms. Patient states that the symptoms have been present for several weeks and that occasionally she does get paresthesias in her thumbs. She does have positive bilateral Anthony tests and tenderness to palpation over her bilateral radial styloids. No recent falls or trauma, do not believe imaging would be beneficial at this time. Presentation most consistent with de Quervain's tenosynovitis, patient is and in the most common age group for this disease. She was provided with bilateral thumb spica splints and advisedto use these as instructed. Also encouraged to rest and ice her wrists. Educated on expected course. She does have a follow-up appointment next week with her primary care doctor and was advised to present for reevaluation at this time. Patient is understanding and agreeable to this plan. Pt remained nontoxic in appearance, vital signs remained stable. At this point no further workup is indicated here in the emergency department. Return precautions discussed. Pt remained hemodynamically stable during their stay in the emergency department. Questions solicited and answered. Disposition: Discharge Condition (at time of disposition): Stable Diagnosis/diagnoses: Musculoskeletal pain De Quervain's disease (radial styloid tenosynovitis) Follow Up: With primary care. Return to the emergency department if symptoms worsen. Brittnee Doherty Physician Radiologist Emergency Department [facility] This Emergency Department patient encounter note was created using voice- recognition software and in real time during the ED visit. Please excuse any typographical errors that have not been edited out. documented in this encounter Miscellaneous Notes * Narrator Note - Maria T Vance RN - 11/29/2021 10:23 AM EST Patient Disposition Patient education for diagnosis, medications, activity, diet and follow-up. Patient left ED 10:23 AM. Patient rep received written instructions. Outside Salesman to provide instructions: No Patient belongings with patient: YES Have all existing LDAs been addressed? N/A Have all IV infusions been stopped? N/A Destination: Discharged to home * ED Triage Note - Maria T Vance RN - 11/29/2021 9:55 AM EST Self referred c/o bilateral arm pain and numbness of both thumbs and forth digit. Symptoms began following of child 1 month ago. Pt states she did experience some numbness in fingers at end of . Vaginal delivery denies spinal anesthesia. documented in this encounter Plan of Treatment Not on file documented as of this encounter Visit Diagnoses Diagnosis Musculoskeletal pain Mylagia and myositis, unspecified De Quervain's disease (radial styloid tenosynovitis) Radial styloid tenosynovitis documented in this encounter Care Teams Road Design Draftsperson Relationship Specialty Start Date End Date Reji Dooley MD [address] [facility] [address] [place] [address] PCP - General 08/15/18 Refugio Seymour DO [address] [id number] PCP - Insurance PCP 11/29/21 documented as of this encounter
--- OUTSIDE RECORDS SUMMARY | 2024-06-03 00:36 | XMS_ITS | Clinical Summary ---
Author Organization [facility] iance Address [address] [place] [address] Care Team Providers Care Critical Power Technician Name Role Phone Reji Dooley MD Primary Care Provider [phone] Refugio Seymour DO Unavailable Allergies No known active allergies Medications No known medications Social History Tobacco Use Types Packs/Day Years Used Date Smoking Tobacco: Never Alcohol Use Standard Drinks/Week Comments No 0 (1 standard drink = 0.6 oz pur e alcohol) Sex and Gender Information Value Date Recorded Sex Assigned at Not on file Gender Identity Not on file Sexual Orientation Not on file Last Filed Vital Signs Vital Sign Reading [...] - - Body Mass Index - - Plan of Treatment Health Maintenance Due Date Last Done Comments COLONOSCOPY 1977 Cervical Cancer Screening 1977 HPV SCREENING 1977 PAP SMEAR 1977 HIV SCREENING 1990 AWQ Questionnaire 1995 COLON CA SCREENING FLEX SIG EVERY 5 YRS 1995 HEALTH CARE PROXY 1995 HEP C SCREEN 1995 LIPID SCREENING 1995 TETANUS VACCINE (1 - Tdap) 1995 PHYSICAL EXAM 1999 MAMMOGRAPHY 2017 Colorectal Cancer Screening 2022 FECAL OCCULT BLOOD AGE 45-75 2022 FIT- DNA (Cologuard) 2022 COVID-19 Vaccine (3 - 2022-2 4 season) 2023 08/14/2021, 07/16/2021 INFLUENZA VACCINE (#1) 2024 1, 09/04/2009 ZOSTER VACCINE (1 of 2) 2027 PNEUMOCOCCAL VACCINE SERIES (< 65) Aged Out No longer eligible b ased on patient's age to complete this topic Care Teams Critical Power Technician Relationship Specialty Start Date End Date Reji Dooley MD [address] [facility] [address] [place] [address] PCP - General 08/15/18 Refugio Seymour DO [address] [phone] PCP - Insurance PCP 11/29/21
--- OUTSIDE RECORDS SUMMARY | 2024-06-03 00:36 | XMS_ITS | Encounter Summary ---
Author Organization [facility] iance Address [address] [place] [address] Care Team Providers Care Geodetic Survey Director Name Role Phone Reji Dooley MD Unavailable [phone] Reason for Visit * Reason Comments Allergic Reaction unknown cause Encounter Details Date Type Department Care Team ([facility] st Contact Info) Description 10/09/2015 3:34 PM EST - 10/09/2015 4:39 PM EST Emergency [facility] - [facility] [address] [place] [address] Rick Hawkins-James-HERNAN Facial rash (Primary Dx) Discharge Disposition: Home Social History [...] Sign Reading Time Taken Comments Blood Pressure 114/79 10/09/2015 3:46 PM EST Pulse 81 10/09/2015 3:46 PM EST Temperature 36.3 ??C (97.3 ??F) 10/09/2015 3:46 PM ES T Respiratory Rate 16 10/09/2015 3:46 PM EST Oxygen Saturation 100% 10/09/2015 3:46 PM EST Inhaled Oxygen Concentration - - Weight - - Height - - Body Mass Index - - documented in this encounter Discharge Instructions * Discharge Instructions* Rick Hawkins PA - 10/09/2015 4:03 PM EST What we did in the Emergency Department (ED): - Exam and History -you were given prednisone and benadryl here Next steps: - Follow up with your regular doctor. Call tomorrow with update and arrange follow up visit. -benadryl as directed as needed. NO WORK, NO ALCOHOL, NO DRIVING after taking!!! -prednisone daily as directed Come back to the Emergency Department (ED) for: Return to the emergency department with any worsening, any concerning symptoms or if unable to obtain follow-up. Worsening signs and symptoms include but are not limited to worsening rash, spreading redness or swelling, pain, fevers, chills, mouth or throat swelling, chest pain,trouble breathing, vomiting or diarrhea, fainting or near fainting, or any other new or concerning symptoms Thank you for your patience. documented in this encounter Medications at Time of Discharge Medication Sig Dispensed Refills Start Date End Date predniSONE (DELTASONE) 20 MG tablet Take 2 tablets by mouth daily. 10 tablet 0 10/09/2015 10/14/2015 diphenhydrAMINE (BENADRYL) 25 MG tablet Take 1 tablet by mouth every 6 (six) hours as needed for Itching or Allergies. 20 tablet 0 10/09/2015 10/14/2015 documented as of this encounter ED Notes * Rick Hawkins PA - 10/09/2015 3:51 PM EST eMERGENCY dEPARTMENT Physician Hobbing Machine Operator NOTE The ED nursing record was reviewed. The prior medical records as available electronically through [employer] were reviewed. The mode of arrival was Relative on 10/09/2015 3:34 PM. Pt seen primarily by me. CHIEF COMPLAINT Patient presents with: Allergic Reaction: unknown cause ISAIAS Betancourt is a 39 year old female presenting with c/o pruritic rash to face (around eyes and to cheeks) for past 1-2 days. Denies any other complaints. No mouth/throat involvement, eye involvement, CP, SOB, abdo pain, vomiting, syncope or near syncope, diarrhea, fevers, pain. No meds tried. Denies any sick contacts, prior occurrences or recent new exposures. Denies any pastmed hx. PAST MEDICAL HISTORY History reviewed. No pertinent past medical history. PROBLEM LIST There is no problem list on file for this patient. SURGICAL HISTORY History reviewed. No pertinent past surgical history. CURRENT MEDICATIONS No current outpatient prescriptions on file. ALLERGIES Review of Patient's Allergies indicates: No Known Allergies FAMILY HISTORY History reviewed. No pertinent family history. SOCIAL HISTORY Social History Main Topics Smoking Status: Never Smoker Alcohol Use: No Drug Use: No REVIEW OF SYSTEMS The pertinent positives are reviewed in the HPI above. All other systems were reviewed and are negative. PHYSICAL EXAM Vital Signs: BP 114/79 mmHg Pulse 81 Temp(Src) 97.3 ??F Resp 16 SpO2 100% LMP 09/22/2015 (Exact Date) Constitutional: Well-developed, Well-nourished, Non-toxic appearance. Speaking full sentences. HEAD: Without signs of trauma. NECK:Supple with no meningismus. EYES: Pupils are equal and reactive. Extraocular movements are intact. No scleral icterus. ENT: Oropharynx clear, airway patent. Mucus membranes are moist. LYMPHATICS: No palpable cervical lymphadenopathy. CV: RRR, No MRG, radial pulses 2+ B/L PULMONARY: CTAB, No WRR ABDOMINAL: Soft, NTND, No palpable organomegaly or mass. MUSCULOSKELETAL : Moving all 4 extremities.Ambulatory w/ a steady gait. T SKIN:Warm and dry. Mild redness to bilateral periorbital and maxillary regions of face, no sloughing/tenderness/drainage/raises lesions, mucus membrane involvement. NEUROLOGIC: Normal mental status. Cranial nerves, motor, sensor, and cerebellar function are grossly intact. PSYCHIATRIC: Normal affect RESULTS No results found for this visit on 10/09/15 (from the past 24 hour(s)). MEDICATIONS ADMINISTERED ON THIS VISIT No orders of the defined types were placed in this encounter. ED COURSE & MEDICAL DECISION MAKING I reviewed the patient's past medical history/problem list, past surgical history, medication list,social history and allergies. ED Decision Making & Course: Pt is a 39 year old female with above exam and HPI. Impression is a pruritic facial rash. Suspect allergic or irritant etiology. Pt started on oral antihistamine and steroid burst. To f/u with PCP and return as needed. Patient given discharge instructions including return precautions. They express understanding and agreement with the plan of care all questions answered here. Diagnosis: Facial rash (primary encounter diagnosis) Disposition:discharged home in stable condition Rick Hawkins PA-C [facility] Department of Emergency Medicine This record was generated in real time using voice recognition software. I proof-read and correctedany voice recognitions errors found. Please excuse any remaining voice recognition errors which were not detected. documented in this encounter Miscellaneous Notes * Narrator Note - Rosi Adan RN - 10/09/2015 4:14 PM EST Patient Disposition Patient education for diagnosis, medications, activity, diet and follow-up. Patient left ED 4:14 PM. Patient rep received written instructions. Compensation Administrator to provide instructions: No Patient belongings with patient: YES Have all existing LDAs been addressed? N/A Have all IV infusions been stopped? N/A Discharged to: Discharged to home * ED Triage Note - Arlene Skinner - 10/09/2015 3:47 PM EST Presents reporting an allergic reaction that began yesterday. She reports itching and burning but no pain. She denies any history of allergies and has been questioned about eating out, new creams, facial wash , flu shot, etc. She denies difficulty breathing. Vital signs are stable. documented in this encounter Plan of Treatment Not on file documented as of this encounter Visit Diagnoses Diagnosis Facial rash- Primary documented in this encounter Administered Medications Inactive Administered Medications - up to 3 most recent administrations Medication Order MAR Action Action Date Dose Rate Site diphenhydrAMINE (BENADRYL) capsule 25 mg 25 mg, Oral, ONCE, On Wed10/09/15 at 1619, For 1 dose Given 10/09/2015 4:09 PM EST 25 mg predniSONE (DELTASONE) tablet 40 mg 40 mg, Oral, ONCE, On Wed10/09/15 at 1619, For 1 dose Given 10/09/2015 4:09 PM EST 40 mg documented in this encounter Active and Recently Administered Medications Times are shown in EST. Scheduled Medication Order 10/07/2015 10/08/2015 10/09/2015 diphenhydrAMINE (BENADRYL) capsule 25 mg (COMPLETED) 25 mg, Oral, ONCE, On Wed10/09/15 at 1619, For 1 dose 1609 (Given - Provid er: Rosi Adan RN) predniSONE (DELTASONE) tablet 40 mg (COMPLETED) 40 mg, Oral, ONCE, On Wed10/09/15 at 1619, For 1 dose 1609 (Given - Provid er: Rosi Adan RN) documented in this encounter Care Teams Geodetic Survey Director Relationship Specialty Start Date End Date Reji Dooley MD [address] [place] [address] PCP - Insurance PCP 10/09/15 08/14/18 documented as of this encounter
== END 2024-06-03 00:27 | disposition home or self-care (01) ==
LOC: ER 06-03 00:34
PROVIDERS: Emergency Provider Student in an Organized Health Care Education/Training Program
DX: S09.8XXA Other specified injuries of head, initial encounter (principal); N20.0 Calculus of kidney; N28.89 Other specified disorders of kidney and ureter; E87.6 Hypokalemia; V48.6XXA Car passenger injured in noncollision transport accident in traffic accident, initial encounter
CPT/HCPCS: 36415; 80053; 81025; 83690; 99285; 71046; 74177; 81003; 81015; 82150; 85025; 99284; J1885; J3490